=== PATIENT | male | born 1960 | race Caucasian/White ===

== ENCOUNTER 2016-11-10 07:11 | Emergency (ER) | payer SELFPAY ==
[~2016-11-10] VITALS: Ht 172.7 cm; Wt 81.8 kg
[~2016-11-10 07:11] MED LIST: CELEXA20 MG PO; NO HOME MEDICATIONS; REMERON30 MG PO; SEROQUEL XR150 MG PO; ZYPREXA10 MG PO
[2016-11-10 07:17] VITALS: BP 145/90; PULSE 75; TEMP 97.3
== END 2016-11-10 08:05 | disposition home or self-care (01) ==
LOC: COL.ER 07:11
DX: M79.641 Pain in right hand (principal); M79.644 Pain in right finger(s); F31.9 Bipolar disorder, unspecified; F17.210 Nicotine dependence, cigarettes, uncomplicated; Z98.890 Other specified postprocedural states; X50.3XXA Overexertion from repetitive movements, initial encounter; Y92.69 Other specified industrial and construction area as the place of occurrence of the external cause

== ENCOUNTER 2017-06-24 08:52 | Emergency (ER) | payer SELFPAY ==
[~2017-06-24] VITALS: Ht 170.2 cm; Wt 82.2 kg
[2017-06-24 09:01] VITALS: BP 160/96; TEMP 97.7
[2017-06-24] MEDS ORDERED: ZITHROMAX Z PA250 MG PO (10:15)
[2017-06-24 10:25] VITALS: PULSE 73
== END 2017-06-24 10:27 | disposition home or self-care (01) ==
LOC: COL.ER 08:52
DX: J20.9 Acute bronchitis, unspecified (principal); F31.9 Bipolar disorder, unspecified; F17.210 Nicotine dependence, cigarettes, uncomplicated

== ENCOUNTER 2021-01-29 10:51 | Emergency (ER) | payer BC ==
[~2021-01-29] VITALS: Ht 172.7 cm; Wt 79.5 kg
[~2021-01-29 10:51] MED LIST changes: +ASPIRIN 81M81 MG/TA2 PO; +LIPITOR 80MG80 MG PO; +NITROSTAT0.4 MG/TAB SL; +PLAVIX 75MG TAB75 MG PO; +TOPROL XL 25MG25 MG PO; +ZITHROMAX Z PA250 MG PO
[2021-01-29] MEDS ORDERED: NIZORAL CR 60GM TOP (11:15)
[2021-01-29 11:23] VITALS: BP 158/64; PULSE 65; TEMP 97.8
== END 2021-01-29 11:28 | disposition home or self-care (01) ==
LOC: COL.ER 10:51
DX: B35.6 Tinea cruris (principal); I10 Essential (primary) hypertension; I25.10 Atherosclerotic heart disease of native coronary artery without angina pectoris; E78.5 Hyperlipidemia, unspecified; F17.210 Nicotine dependence, cigarettes, uncomplicated; Z79.02 Long term (current) use of antithrombotics/antiplatelets; Z79.82 Long term (current) use of aspirin; Z79.899 Other long term (current) drug therapy

== ENCOUNTER → 2023-05-23 | Outpatient (CLI) | payer OTHER ==
[~2023-05-23] MED LIST changes: +NIZORAL CR 60GM TOP
== END ==
LOC: COL.RAD 09:01
DX: Z12.2 Encounter for screening for malignant neoplasm of respiratory organs (principal)